=== PATIENT | female | born 1965 | race Caucasian/White ===

== ENCOUNTER 2019-11-27 17:11 | Inpatient (IN) ==
[~2019-11-27 17:11] MED LIST: Nicotine 21 MG PATCH.TD24 TD SCH
[2019-11-27] MEDS ORDERED: Nitroglycerin 0.4 MG TAB.SUBL SL PRN (19:51)
[2019-11-27] MEDS: Nicotine 21 MG PATCH.TD24 TD SCH (21:07)
[2019-11-27] MEDS ORDERED: *HR* LORazepam 2 MG/ML VIAL IVP ONE (21:11)
[2019-11-27] MEDS ORDERED: Perflutren Lipid Microsphere 1.3 ML in 0.9 % Sodium Chloride 8.7 ML IVP ONE (22:35)
[2019-11-27] MEDS ORDERED: Acetaminophen 325 MG TABLET PO PRN (22:43)
[2019-11-27] MEDS ORDERED: Gabapentin 400 MG CAPSULE PO PRN (22:48)
[2019-11-27] MEDS: *HR* Heparin 5,000 UNIT/ML VIAL SQ SCH (23:49)
[2019-11-28] MEDS ORDERED: *HR* Buprenorphine HCl 8 MG TAB.SUBL SL SCH
[2019-11-28 02:58] LABS: Basophils # 0.1 K/mcL (0.0-0.2); Basophils % 0.8 %; Eosinophils # 0.4 K/mcL (0.0-0.6); Eosinophils % 3.1 %; Hematocrit 51.8 % (35.3-44.9); Immature Granulocytes % 0.3 % (0-4); Lymphocytes # 4.7 K/mcL (0.6-4.6); Lymphocytes % 37.4 %; Mean Corpuscular HGB Conc 30.9 g/dL (31.6-35.5); Mean Corpuscular Hemoglobin 28.2 pg (28.0-33.3); Mean Corpuscular Volume 91.4 fL (83.0-100.0); Mean Platelet Volume 9.5 fL (9.4-12.4); Monocytes # 0.8 K/mcL (0.0-1.3); Neutrophils # 6.6 K/mcL (1.6-8.9); Platelet Count 304 K/mcL (140-400); Red Blood Count 5.67 M/mcL (3.82-4.97); Red Cell Distribution Width 15.5 % (11.5-14.5); Segmented Neutrophils % 52.4 %; White Blood Count 12.6 K/mcL (4.3-11.1)
[2019-11-28 03:21] LABS: BUN/Creatinine Ratio 14 (6-26); Blood Urea Nitrogen 10 mg/dL (6-20); Calcium 9.3 mg/dL (8.6-10.3); Carbon Dioxide 34 mEq/L (23-29); Chloride 101 mEq/L (98-107); Cholesterol 123 mg/dL (< 200); Glucose 119 mg/dL (70-105); HDL Cholesterol 31 mg/dL (40-59); LDL Cholesterol,Calculated 66 mg/dL (< 100); Osmolality,Calculated 288 (280-300); Potassium 3.7 mEq/L (3.5-5.1); Sodium 139 mEq/L (136-145); Triglycerides 132 mg/dL (< 150); eGFR For African Americans > 60 (> 60); eGFR For Non-African Americans > 60 (> 60)
[2019-11-28 03:33] LABS: Thyroid Stimulating Hormone 1.423 mcIU/mL (0.340-5.600)
[2019-11-28 04:22] LABS: Estimated Average Glucose 163 mg/dl
[2019-11-28] MEDS: *HR* Heparin 5,000 UNIT/ML VIAL SQ SCH ×3 (04:59→20:55)
[2019-11-28] MEDS ORDERED: *HR* LORazepam 2 MG/ML VIAL IVP ONE (07:55)
[2019-11-28] MEDS ORDERED: Perflutren Lipid Microsphere 1.3 ML in 0.9 % Sodium Chloride 8.7 ML IVP ONE (08:42)
[2019-11-28] MEDS ORDERED: D5% in Water 1,000 ML IVC PRN (10:21)
[2019-11-28] MEDS ORDERED: Dextrose Gel 15 GM/37.5 ML TUBE PO PRN ×2 (10:21)
[2019-11-28] MEDS ORDERED: *HR* Dextrose 50 % in Water (Vial) 50 ML VIAL IVP PRN (10:21)
[2019-11-28] MEDS: Aspirin 81 MG TAB.CHEW PO SCH (11:03)
[2019-11-28] MEDS: Nicotine 21 MG PATCH.TD24 TD SCH (11:03)
[2019-11-28] MEDS: *HR* Buprenorphine HCl 8 MG TAB.SUBL SL SCH ×2 (11:03→20:57)
[2019-11-28] MEDS: Insulin LISPRO 300 UNITS/3 ML VIAL SQ SCH ×2 (13:17→16:10)
[2019-11-29] MEDS: Ondansetron 4 MG/2 ML VIAL IVP PRN ×2 (00:15→10:20)
[2019-11-29 02:14] LABS: Basophils # 0.1 K/mcL (0.0-0.2); Basophils % 0.6 %; Eosinophils # 0.3 K/mcL (0.0-0.6); Eosinophils % 2.1 %; Immature Granulocytes % 0.2 % (0-4); Lymphocytes # 2.8 K/mcL (0.6-4.6); Lymphocytes % 21.9 %; Mean Corpuscular HGB Conc 29.4 g/dL (31.6-35.5); Mean Corpuscular Hemoglobin 27.1 pg (28.0-33.3); Mean Corpuscular Volume 92.1 fL (83.0-100.0); Mean Platelet Volume 9.8 fL (9.4-12.4); Monocytes # 0.5 K/mcL (0.0-1.3); Monocytes % 3.9 %; Neutrophils # 9.1 K/mcL (1.6-8.9); Platelet Count 283 K/mcL (140-400); Red Blood Count 5.54 M/mcL (3.82-4.97); Red Cell Distribution Width 15.1 % (11.5-14.5); Segmented Neutrophils % 71.3 %; White Blood Count 12.8 K/mcL (4.3-11.1)
[2019-11-29 02:27] LABS: BUN/Creatinine Ratio 14 (6-26); Blood Urea Nitrogen 10 mg/dL (6-20); Calcium 8.8 mg/dL (8.6-10.3); Carbon Dioxide 32 mEq/L (23-29); Chloride 103 mEq/L (98-107); Glucose 147 mg/dL (70-105); Osmolality,Calculated 290 (280-300); Sodium 139 mEq/L (136-145); eGFR For African Americans > 60 (> 60); eGFR For Non-African Americans > 60 (> 60)
[2019-11-29 02:29] LABS: Alanine Aminotransferase 10 Units/L (7-52); Albumin 3.6 g/dL (3.5-5.7); Albumin/Globulin Ratio 1.1 (1.1-2.2); Alkaline Phosphatase 119 Units/L (34-104); Aspartate Amino Transferase 15 Units/L (13-39); BUN/Creatinine Ratio 13 (6-26); Bilirubin,Total 0.4 mg/dL (0.3-1.0); Blood Urea Nitrogen 10 mg/dL (6-20); Calcium 8.8 mg/dL (8.6-10.3); Carbon Dioxide 31 mEq/L (23-29); Chloride 103 mEq/L (98-107); Globulin 3.4 g/dL (2.4-3.5); Glucose 148 mg/dL (70-105); Osmolality,Calculated 292 (280-300); Potassium 3.9 mEq/L (3.5-5.1); Sodium 140 mEq/L (136-145); eGFR For African Americans > 60 (> 60); eGFR For Non-African Americans > 60 (> 60)
[2019-11-29] MEDS: *HR* Heparin 5,000 UNIT/ML VIAL SQ SCH ×3 (05:10→20:50)
[2019-11-29] MEDS ORDERED: Regadenoson 0.4 MG/5 ML SYRINGE IVP ONE (07:32)
[2019-11-29] MEDS: Insulin LISPRO 300 UNITS/3 ML VIAL SQ SCH ×3 (08:24→16:53)
[2019-11-29] MEDS ORDERED: Furosemide 20 MG TABLET PO SCH (09:00)
[2019-11-29] MEDS ORDERED: Furosemide 40 MG TABLET PO SCH (09:00)
[2019-11-29] MEDS: *HR* Buprenorphine HCl 8 MG TAB.SUBL SL SCH ×2 (09:50→20:49)
[2019-11-29] MEDS: Aspirin 81 MG TAB.CHEW PO SCH (09:50)
[2019-11-29] MEDS: Nicotine 21 MG PATCH.TD24 TD SCH (09:50)
[2019-11-29] MEDS: lisinopriL 20 MG TABLET PO SCH (09:50)
[2019-11-29] MEDS: Furosemide 40 MG/4 ML VIAL IVP SCH (20:49)
[2019-11-30 01:47] LABS: Basophils # 0.1 K/mcL (0.0-0.2); Basophils % 0.6 %; Eosinophils # 0.2 K/mcL (0.0-0.6); Eosinophils % 1.5 %; Hematocrit 50.3 % (35.3-44.9); Hemoglobin 14.9 g/dL (11.5-15.4); Immature Granulocytes % 0.3 % (0-4); Lymphocytes # 3.9 K/mcL (0.6-4.6); Lymphocytes % 30.7 %; Mean Corpuscular HGB Conc 29.6 g/dL (31.6-35.5); Mean Corpuscular Hemoglobin 27.6 pg (28.0-33.3); Mean Corpuscular Volume 93.3 fL (83.0-100.0); Mean Platelet Volume 9.7 fL (9.4-12.4); Monocytes # 0.7 K/mcL (0.0-1.3); Monocytes % 5.3 %; Neutrophils # 7.9 K/mcL (1.6-8.9); Platelet Count 265 K/mcL (140-400); Red Blood Count 5.39 M/mcL (3.82-4.97); Red Cell Distribution Width 14.8 % (11.5-14.5); Segmented Neutrophils % 61.6 %; White Blood Count 12.8 K/mcL (4.3-11.1)
[2019-11-30 02:03] LABS: BUN/Creatinine Ratio 12 (6-26); Blood Urea Nitrogen 11 mg/dL (6-20); Calcium 8.9 mg/dL (8.6-10.3); Carbon Dioxide 34 mEq/L (23-29); Chloride 99 mEq/L (98-107); Glucose 119 mg/dL (70-105); Osmolality,Calculated 291 (280-300); Potassium 3.8 mEq/L (3.5-5.1); Sodium 140 mEq/L (136-145); eGFR For African Americans > 60 (> 60); eGFR For Non-African Americans > 60 (> 60)
[2019-11-30] MEDS: *HR* Heparin 5,000 UNIT/ML VIAL SQ SCH ×3 (06:07→20:46)
[2019-11-30] MEDS: Nicotine 21 MG PATCH.TD24 TD SCH (06:11)
[2019-11-30] MEDS: Insulin LISPRO 300 UNITS/3 ML VIAL SQ SCH ×3 (07:50→16:10)
[2019-11-30] MEDS: lisinopriL 20 MG TABLET PO SCH (08:18)
[2019-11-30] MEDS: *HR* Buprenorphine HCl 8 MG TAB.SUBL SL SCH ×2 (08:19→20:47)
[2019-11-30] MEDS: Furosemide 40 MG/4 ML VIAL IVP SCH ×2 (08:19→20:46)
[2019-11-30] MEDS: Aspirin 81 MG TAB.CHEW PO SCH (08:19)
[2019-11-30] MEDS ORDERED: polyethylene glycoL 3350 17 GM POWD.PACK PO PRN (23:32)
[2019-12-01] MEDS: *HR* Heparin 5,000 UNIT/ML VIAL SQ SCH ×3 (05:28→20:09)
[2019-12-01 05:56] LABS: Basophils # 0.1 K/mcL (0.0-0.2); Eosinophils # 0.3 K/mcL (0.0-0.6); Eosinophils % 2.8 %; Hematocrit 51.2 % (35.3-44.9); Hemoglobin 15.2 g/dL (11.5-15.4); Immature Granulocytes % 0.2 % (0-4); Lymphocytes % 41.5 %; Mean Corpuscular HGB Conc 29.7 g/dL (31.6-35.5); Mean Corpuscular Hemoglobin 27.5 pg (28.0-33.3); Mean Corpuscular Volume 92.6 fL (83.0-100.0); Mean Platelet Volume 9.6 fL (9.4-12.4); Monocytes # 0.6 K/mcL (0.0-1.3); Monocytes % 5.8 %; Neutrophils # 4.7 K/mcL (1.6-8.9); Platelet Count 244 K/mcL (140-400); Red Blood Count 5.53 M/mcL (3.82-4.97); Red Cell Distribution Width 14.6 % (11.5-14.5); Segmented Neutrophils % 48.7 %; White Blood Count 9.6 K/mcL (4.3-11.1)
[2019-12-01 06:10] LABS: BUN/Creatinine Ratio 17 (6-26); Blood Urea Nitrogen 13 mg/dL (6-20); Calcium 9.2 mg/dL (8.6-10.3); Carbon Dioxide 39 mEq/L (23-29); Chloride 97 mEq/L (98-107); Glucose 139 mg/dL (70-105); Osmolality,Calculated 294 (280-300); Potassium 3.5 mEq/L (3.5-5.1); Sodium 141 mEq/L (136-145); eGFR For African Americans > 60 (> 60); eGFR For Non-African Americans > 60 (> 60)
[2019-12-01] MEDS: Insulin LISPRO 300 UNITS/3 ML VIAL SQ SCH ×3 (07:59→16:47)
[2019-12-01] MEDS: Furosemide 40 MG/4 ML VIAL IVP SCH ×2 (08:05→20:08)
[2019-12-01] MEDS: Aspirin 81 MG TAB.CHEW PO SCH (08:05)
[2019-12-01] MEDS: Nicotine 21 MG PATCH.TD24 TD SCH (08:05)
[2019-12-01] MEDS: *HR* Buprenorphine HCl 8 MG TAB.SUBL SL SCH ×2 (08:05→20:09)
[2019-12-01] MEDS: lisinopriL 20 MG TABLET PO SCH (08:06)
[2019-12-02 02:39] LABS: Basophils # 0.1 K/mcL (0.0-0.2); Basophils % 0.7 %; Eosinophils # 0.2 K/mcL (0.0-0.6); Eosinophils % 1.7 %; Hematocrit 51.7 % (35.3-44.9); Hemoglobin 15.3 g/dL (11.5-15.4); Immature Granulocytes % 0.3 % (0-4); Lymphocytes # 3.8 K/mcL (0.6-4.6); Lymphocytes % 33.7 %; Mean Corpuscular HGB Conc 29.6 g/dL (31.6-35.5); Mean Corpuscular Hemoglobin 27.1 pg (28.0-33.3); Mean Corpuscular Volume 91.5 fL (83.0-100.0); Mean Platelet Volume 9.7 fL (9.4-12.4); Monocytes # 0.7 K/mcL (0.0-1.3); Monocytes % 6.2 %; Neutrophils # 6.5 K/mcL (1.6-8.9); Platelet Count 280 K/mcL (140-400); Red Blood Count 5.65 M/mcL (3.82-4.97); Red Cell Distribution Width 14.7 % (11.5-14.5); Segmented Neutrophils % 57.4 %; White Blood Count 11.3 K/mcL (4.3-11.1)
[2019-12-02 02:55] LABS: BUN/Creatinine Ratio 24 (6-26); Blood Urea Nitrogen 18 mg/dL (6-20); Calcium 9.4 mg/dL (8.6-10.3); Carbon Dioxide 38 mEq/L (23-29); Chloride 96 mEq/L (98-107); Glucose 108 mg/dL (70-105); Osmolality,Calculated 290 (280-300); Potassium 3.7 mEq/L (3.5-5.1); Sodium 139 mEq/L (136-145); eGFR For African Americans > 60 (> 60); eGFR For Non-African Americans > 60 (> 60)
[2019-12-02] MEDS: *HR* Heparin 5,000 UNIT/ML VIAL SQ SCH (05:53)
[2019-12-02 07:51] VITALS: BP 115/76
[2019-12-02] MEDS: Insulin LISPRO 300 UNITS/3 ML VIAL SQ SCH (07:55)
[2019-12-02] MEDS: Furosemide 40 MG/4 ML VIAL IVP SCH (08:00)
[2019-12-02] MEDS: Aspirin 81 MG TAB.CHEW PO SCH (08:01)
[2019-12-02] MEDS: Nicotine 21 MG PATCH.TD24 TD SCH (08:02)
[2019-12-02] MEDS: lisinopriL 20 MG TABLET PO SCH (08:02)
[2019-12-02] MEDS: *HR* Buprenorphine HCl 8 MG TAB.SUBL SL SCH (09:57)
== END 2019-12-02 13:43 | disposition home or self-care (01) | DRG 203 ==
LOC: 3BNU
PROVIDERS: ADMIT Internal Medicine; ATTEND Internal Medicine